=== PATIENT | female | born 1960 | race Caucasian/White ===

== ENCOUNTER 2019-12-15 15:24 | Emergency (ER) | payer OTHER ==
--- NOTE | 2019-12-15 16:13 | EDM.PDOC ---
ED HPI GENERAL MEDICAL PROBLEM - General Stated Complaint: CUT HAND Time Seen by Provider: 12/15/19 15:40 Source of Information: Reports: Patient History Limitations: Reports: No Limitations - History of Present Illness INITIAL COMMENTS - FREE TEXT/NARRATIVE: The patient is a 59-year-old white female who cut her left hand on a nail just prior to coming into the hospital. Her daughter who is a physician recommended the patient come in for suturing. Her daughter cleansed the wound with antiseptic prior to the patient coming to the emergency department. Injuries to the left palm just through the dermis into the subcutaneous tissues. No tendon exposure Onset: Today Location: Reports: Other (Left palm) - Related Data Allergies Allergy/AdvReac Type Severity Reaction Status Date / Time No Known Allergies Allergy Verified 12/15/19 17:00 Review of Systems - Review of Systems Review Of Systems: See Below Constitutional: Denies: Chills, Fever Respiratory: Denies: Shortness of Breath, Cough ED EXAM, GENERAL - Physical Exam Exam: See Below Exam Limited By: No Limitations General Appearance: Alert, No Apparent Distress Extremities: Other (2.5 cm laceration of the left palm) Neurological: Alert, No Motor/Sensory Deficits Psychiatric: Normal Affect, Normal Mood Skin Exam: Warm, Dry, Normal Color, Wound/Incision (2.5 cm linear laceration of the left palm. Sensation and circulation intact distal to the injury) ED TRAUMA PROCEDURES - Laceration/Wound Repair Left Hand Lac/Wound Length In cm: 2.5 Appearance: Subcutaneous Distal NVT: Neuro & Vascular Intact, No Tendon Injury Anesthetic Type: Local Local Anesthesia - Lidocaine (Xylocaine): 1% with EPI Local Anesthetic Volume: 3cc Skin Prep: Saline, Sterile Drape Exploration/Debridement/Repair: Wound Explored, Explored to Base, No Foreign Material Found Closed With: Sutures Suture Size: 5-0 # of Sutures: 5 Suture Type: Nylon, Interrupted, Simple Tetanus Status Addressed: Other (Tetanus immunization given) Complications: No Course - Vital Signs Last Recorded V/S: Last Vital Signs Temp 97.7 F 12/15/19 16:50 Pulse 80 12/15/19 16:50 Resp 16 12/15/19 16:50 BP 130/70 12/15/19 16:50 Pulse Ox 98 12/15/19 16:50 - Orders/Labs/Meds Meds: Medications Discontinued Medications Generic Name Dose Route Start Last Admin Trade Name Milly PRN Reason Stop Dose Admin Diphtheria/Tetanus/Acell Pertussis 0.5 ml 12/15/19 17:00 12/15/19 16:00 Boostrix IM 12/15/19 17:01 0.5 ml .ONCE ONE Administration Departure - Departure Time of Disposition: 16:15 Disposition: Home, Self-Care 01 Condition: Good Clinical Impression: Laceration of hand without complication, excluding fingers Qualifiers: Encounter type: initial encounter Laterality: left Qualified Code(s): S61.412A - Laceration without foreign body of left hand, initial encounter - Discharge Information *PRESCRIPTION DRUG MONITORING PROGRAM REVIEWED*: Not Applicable *COPY OF PRESCRIPTION DRUG MONITORING REPORT IN PATIENT EDWIGE: Not Applicable Instructions: Laceration Care, Adult Referrals: PCP,None [Primary Care Provider] - Forms: ED Department Discharge Additional Instructions: keep the wound clean and dry. have sutures removed in 8 to 10 days Return for signs of infection such as redness pus drainage red streaks or fever Change bandage on a daily basis started on Wednesday
[2019-12-15] MEDS ORDERED: Diphtheria,Pertussis(Acell),Tetanus Vaccine 0.5 ML SDV IM ONE (17:00)
== END 2019-12-15 16:25 | disposition home or self-care (01) ==
LOC: LB.ED 15:24
DX: S61.412A Laceration without foreign body of left hand, initial encounter (principal); Z23 Encounter for immunization; W45.0XXA Nail entering through skin, initial encounter
CPT/HCPCS: 12001; 90471; 90715; 99282; 99282-25